=== PATIENT | female | born 1940 | race Caucasian/White ===

== ENCOUNTER 2017-04-24 09:45 | Emergency (ER) | payer OTHER ==
[~2017-04-24] VITALS: Ht 160 cm; Wt 56.5 kg
[2017-04-24] MEDS ORDERED: METF500T4 PO (10:12)
[2017-04-24] MEDS ORDERED: TRAM50TA2 PO (10:12)
[2017-04-24] MEDS ORDERED: PRAM0.5T PO (10:12)
[2017-04-24] MEDS ORDERED: [UNRECOGNIZED DRUG - CODE] INLINE (10:12)
[2017-04-24] MEDS ORDERED: GABA300C10 PO (10:12)
[2017-04-24] MEDS ORDERED: ALBUTEROL/IPRATROPIUM 2.5MG/0.5MG, 3 ML ONE (10:38)
[2017-04-24] MEDS ORDERED: SODIUM CHLORIDE FLUSH 10ML SYR IVF ONE (11:00)
[2017-04-24] MEDS ORDERED: methylPREDNISolone SOD SUCC 125 MG/2 ML IVP ONE (11:00)
[2017-04-24] MEDS ORDERED: ALBUTEROL/IPRATROPIUM 2.5MG/0.5MG, 3 ML NPPB ONE (11:00)
[2017-04-24 11:15] LABS: BASOPHILS % (AUTO) 0 % (0-1); EOSINOPHILS # (AUTO) 0.17 x10^3/uL (0-0.4); EOSINOPHILS % (AUTO) 3 % (1-7); LYMPHOCYTES # (AUTO) 1.18 x10^3/uL (1-3.4); LYMPHOCYTES % (AUTO) 18 % (22-44); MD NO; MEAN CORPUSCULAR HEMOGLOBIN 29.2 pg (27.0-34.8); MEAN CORPUSCULAR HGB CONC 33.1 g/dL (32.4-35.8); MEAN CORPUSCULAR VOLUME 88.2 fL (80-100); MEAN PLATELET VOLUME 6.9 fL (7.4-10.4); MONOCYTES # (AUTO) 0.48 x10^3/uL (0.2-0.8); MONOCYTES % (AUTO) 7 % (2-9); NEUTROPHILS # (AUTO) 4.69 x10^3/uL (1.8-6.8); NEUTROPHILS % (AUTO) 72 % (42-75); PLATELET COUNT 115 x10^3/uL (130-400); RED BLOOD COUNT 4.92 x10^6/uL (3.82-5.3); RED CELL DISTRIBUTION WIDTH 13.6 % (9.6-15.2)
[2017-04-24 11:27] LABS: ALANINE AMINOTRANSFERASE 17 U/L (12-78); ALBUMIN 3.6 g/dL (3.4-5.0); ANION GAP 8 mmol/L (5-15); CALCIUM 9.2 mg/dL (8.5-10.1); CHLORIDE 100 mmol/L (98-107); CREATININE 0.79 mg/dL (0.55-1.02)
[2017-04-24 11:32] LABS: CULTURE INDICATED? YES; MICROSCOPIC INDICATED
[2017-04-24 11:32] LABS: ALKALINE PHOSPHATASE 72 U/L (45-117); BILIRUBIN,TOTAL 1.1 mg/dL (0.2-1.0); TOTAL PROTEIN 7.9 g/dL (6.4-8.2); TROPONIN I < 0.015 ng/mL (0.000-0.045)
[2017-04-24] MEDS ORDERED: methylPREDNISolone SOD SUCC 125 MG/2 ML ONE (11:49)
[2017-04-24 11:57] VITALS: BP 126/61
[2017-04-24] MEDS ORDERED: ACETAMINOPHEN 325 MG TABLET ONE (12:16)
[2017-04-24] MEDS ORDERED: ACETAMINOPHEN 325 MG TABLET PO ONE (13:00)
== END 2017-04-24 12:25 | disposition home or self-care (01) ==
LOC: ED 10:49
DX: J44.1 Chronic obstructive pulmonary disease with (acute) exacerbation (principal)
CPT/HCPCS: 36415; 71045; 80053; 81001; 83880; 84484; 85025; 87086; 93005; 94640; 96374; 99285; J2930; J7620

== ENCOUNTER 2017-09-27 09:27 | Inpatient (IN) | payer OTHER ==
[~2017-09-27] VITALS: Ht 154.9 cm; Wt 66.4 kg
[~2017-09-27 09:27] MED LIST: GABA300C10 PO; METF500T5 PO; PRAM0.5T PO; TRAM50TA2 PO; [UNRECOGNIZED DRUG - CODE] INLINE
[2017-09-27] MEDS ORDERED: SODIUM CHLORIDE 0.9% 1,000 ML IV ONE (09:42)
[2017-09-27] MEDS ORDERED: SODIUM CHLORIDE FLUSH 10ML SYR IVF ONE (10:00)
[2017-09-27] MEDS ORDERED: DIPH,PERTUSS(ACELL),TET VAC/PF 0.5 ML IM-VACC ONE ×2 (10:08→10:30)
[2017-09-27 10:10] LABS: INTERNATIONAL NORMALIZED RATIO 1.05 (0.93-1.1); PROTHROMBIN TIME 10.8 Seconds (9.6-11.5)
[2017-09-27 10:12] LABS: ALANINE AMINOTRANSFERASE 26 U/L (12-78); ALBUMIN 3.3 g/dL (3.4-5.0); ANION GAP 4 mmol/L (5-15); CALCIUM 8.9 mg/dL (8.5-10.1); CHLORIDE 104 mmol/L (98-107); CREATININE 0.85 mg/dL (0.55-1.02)
[2017-09-27 10:14] LABS: ALKALINE PHOSPHATASE 73 U/L (45-117); BILIRUBIN,TOTAL 0.5 mg/dL (0.2-1.0)
[2017-09-27 10:38] LABS: BASOPHILS # (AUTO) 0.01 x10^3/uL (0-0.1); BASOPHILS % (AUTO) 0 % (0-1); EOSINOPHILS % (AUTO) 4 % (1-7); LYMPHOCYTES # (AUTO) 1.17 x10^3/uL (1-3.4); LYMPHOCYTES % (AUTO) 22 % (22-44); MD NO; MEAN CORPUSCULAR HGB CONC 33.7 g/dL (32.4-35.8); MEAN CORPUSCULAR VOLUME 86.2 fL (80-100); MEAN PLATELET VOLUME 7.9 fL (7.4-10.4); MONOCYTES % (AUTO) 6 % (2-9); NEUTROPHILS # (AUTO) 3.53 x10^3/uL (1.8-6.8); NEUTROPHILS % (AUTO) 68 % (42-75); PLATELET COUNT 108 x10^3/uL (130-400); RED BLOOD COUNT 4.89 x10^6/uL (3.82-5.3); RED CELL DISTRIBUTION WIDTH 14.9 % (9.6-15.2)
[2017-09-27] MEDS ORDERED: BACITRACIN ZINC OINT 500U/GM, 0.9 GM ONE (11:50)
[2017-09-27 12:28] VITALS: BP 161/74
[2017-09-27] MEDS ORDERED: DEXTROSE 4 GM TAB.CHEW PO PRN (13:30)
[2017-09-27] MEDS ORDERED: ENALAPRILAT 1.25 MG/ML, 2ML IVPush PRN (13:30)
[2017-09-27] MEDS ORDERED: ONDANSETRON 2MG/ML, 2ML IVPush PRN (13:30)
[2017-09-27] MEDS ORDERED: hydrALAzine 20 MG/ML, 1ML IVPush PRN (13:30)
[2017-09-27] MEDS ORDERED: HYDROcodone/APAP 5/325 TABLET PO PRN (13:30)
[2017-09-27] MEDS ORDERED: morphine SULFATE 10 MG/ML, 1ML IVPush PRN (13:30)
[2017-09-27] MEDS ORDERED: BISACODYL 10 MG SUPP PR PRN (13:30)
[2017-09-27] MEDS ORDERED: POLYETHYLENE GLYCOL 17 GM PACKET PO PRN (13:30)
[2017-09-27] MEDS ORDERED: GLUCAGON 1 MG IM PRN (13:30)
[2017-09-27] MEDS ORDERED: ONDANSETRON ODT 4 MG PO PRN (13:30)
[2017-09-27] MEDS ORDERED: DEXTROSE 50%, 50ML SYRINGE IVPush PRN (13:30)
[2017-09-27] MEDS: LACTATED RINGERS 1,000 ML IV SCH ×2 (13:50→20:30)
[2017-09-27] MEDS: NICOTINE 21 MG/24 HR PATCH.TD24 TD SCH (15:40)
[2017-09-27] MEDS ORDERED: FURO-93 PO (17:05)
[2017-09-27] MEDS: INSULIN LISPRO 100 UNITS/ML, PEN SQ-INSULIN SCH ×2 (17:27→20:36)
[2017-09-27] MEDS ORDERED: FENTANYL PF 100 MCG/2ML ONE ×2 (17:46→21:54)
[2017-09-27] MEDS ORDERED: PROPOFOL 10 MG/ML, 20ML ONE (17:48)
[2017-09-27 18:55] VITALS: BP 137/76
[2017-09-27] MEDS ORDERED: WATER-INJECTION,STERILE 10 ML IV ONE (19:02)
[2017-09-27] MEDS ORDERED: CEFAZOLIN 1,000 MG ONE ×2 (19:02)
[2017-09-27] MEDS: SODIUM CHLORIDE FLUSH 10ML SYR IVF SCH (20:29)
[2017-09-27] MEDS: DOCUSATE 100 MG CAPSULE PO SCH (20:29)
[2017-09-27] MEDS ORDERED: ONDANSETRON 2MG/ML, 2ML ONE (20:43)
[2017-09-27] MEDS ORDERED: PROMETHAZINE 12.5 MG SUPP PR PRN (21:00)
[2017-09-27] MEDS ORDERED: EPHEDRINE 50 MG/ML, 1ML IM PRN (21:00)
[2017-09-27] MEDS ORDERED: MORPHINE SULFATE 4 MG/ML, 1ML IVPush PRN (21:00)
[2017-09-27] MEDS ORDERED: PROMETHAZINE 25 MG SUPP PR PRN (21:00)
[2017-09-27] MEDS ORDERED: OXYcodone 5 MG/5 ML ORAL.SOL UDC PO PRN (21:00)
[2017-09-27] MEDS ORDERED: ONDANSETRON ODT 8 MG PO PRN (21:00)
[2017-09-27] MEDS ORDERED: MIDAZOLAM 1 MG/ML, 2ML IV PRN (21:00)
[2017-09-27] MEDS ORDERED: FENTANYL PF 100 MCG/2ML IV PRN (21:00)
[2017-09-27] MEDS ORDERED: ALBUTEROL/IPRATROPIUM 2.5MG/0.5MG, 3 ML NPPB PRN (21:00)
[2017-09-27] MEDS ORDERED: OXYcodone 5 MG/5 ML ORAL.SOL UDC ONE (21:54)
[2017-09-27] MEDS ORDERED: OXYcodone/APAP 5/325MG TABLET PO PRN (23:00)
[2017-09-27] MEDS ORDERED: ONDANSETRON 2MG/ML, 2ML IV PRN (23:00)
[2017-09-27] MEDS ORDERED: HYDROcodone/APAP 7.5-325MG/15ML UDC PO PRN (23:00)
[2017-09-27] MEDS ORDERED: HYDROmorphone 2 MG/ML, 1ML IVPush PRN (23:00)
[2017-09-27] MEDS: KETOROLAC 30 MG/1 ML IV SCH (23:13)
[2017-09-27] MEDS: CEFAZOLIN PMX 1GM/50ML 50 ML IVPB SCH (23:13)
[2017-09-28 00:38] VITALS: BP 89/44
[2017-09-28] MEDS ORDERED: POTA10TA5 PO (01:24)
[2017-09-28] MEDS ORDERED: VITA100T PO (01:24)
[2017-09-28] MEDS ORDERED: CRAN500T2 PO (01:24)
[2017-09-28] MEDS ORDERED: UMEC1DIS INH (01:26)
[2017-09-28] MEDS ORDERED: CHOL10003 PO (01:26)
[2017-09-28] MEDS: LACTATED RINGERS 1,000 ML IV SCH ×3 (03:46→21:23)
[2017-09-28 04:48] VITALS: BP 102/48
[2017-09-28 05:37] LABS: BASOPHILS # (AUTO) 0.02 x10^3/uL (0-0.1); BASOPHILS % (AUTO) 0 % (0-1); EOSINOPHILS # (AUTO) 0.23 x10^3/uL (0-0.4); EOSINOPHILS % (AUTO) 3 % (1-7); LYMPHOCYTES # (AUTO) 1.31 x10^3/uL (1-3.4); LYMPHOCYTES % (AUTO) 18 % (22-44); MD NO; MEAN CORPUSCULAR HEMOGLOBIN 28.5 pg (27.0-34.8); MEAN CORPUSCULAR HGB CONC 33.5 g/dL (32.4-35.8); MEAN CORPUSCULAR VOLUME 84.9 fL (80-100); MEAN PLATELET VOLUME 7.7 fL (7.4-10.4); MONOCYTES # (AUTO) 0.51 x10^3/uL (0.2-0.8); MONOCYTES % (AUTO) 7 % (2-9); NEUTROPHILS # (AUTO) 5.19 x10^3/uL (1.8-6.8); NEUTROPHILS % (AUTO) 72 % (42-75); PLATELET COUNT 110 x10^3/uL (130-400); RED BLOOD COUNT 3.29 x10^6/uL (3.82-5.3)
[2017-09-28 05:38] LABS: ANION GAP 3 mmol/L (5-15); CHLORIDE 103 mmol/L (98-107)
[2017-09-28 05:40] LABS: CREATININE 0.94 mg/dL (0.55-1.02)
[2017-09-28] MEDS: ENOXAPARIN 40 MG/0.4 ML SQ SCH (06:20)
[2017-09-28] MEDS: CEFAZOLIN PMX 1GM/50ML 50 ML IVPB SCH (06:20)
[2017-09-28] MEDS: KETOROLAC 30 MG/1 ML IV SCH ×2 (06:20→17:18)
[2017-09-28] MEDS: DOCUSATE 100 MG CAPSULE PO SCH ×2 (07:47→22:00)
[2017-09-28] MEDS: INSULIN LISPRO 100 UNITS/ML, PEN SQ-INSULIN SCH ×4 (07:48→23:03)
[2017-09-28] MEDS: SODIUM CHLORIDE FLUSH 10ML SYR IVF SCH ×4 (07:48→21:00)
[2017-09-28 08:07] VITALS: BP 143/83
[2017-09-28 13:35] VITALS: BP 120/69
[2017-09-28] MEDS: NICOTINE 21 MG/24 HR PATCH.TD24 TD SCH (17:18)
[2017-09-28] MEDS: GABAPENTIN 300 MG CAPSULE PO SCH ×2 (17:18→22:00)
[2017-09-28 19:39] VITALS: BP 86/50
[2017-09-28 21:25] VITALS: BP 99/37
[2017-09-28] MEDS: metFORMIN 500 MG TABLET PO SCH (22:00)
[2017-09-28] MEDS: PRAMIPEXOLE 0.5MG TABLET PO SCH (22:00)
[2017-09-29 01:00] VITALS: BP 106/73
[2017-09-29] MEDS: LACTATED RINGERS 1,000 ML IV SCH ×2 (05:10→14:43)
[2017-09-29 05:32] LABS: ANION GAP 4 mmol/L (5-15); CHLORIDE 106 mmol/L (98-107); CREATININE 0.88 mg/dL (0.55-1.02)
[2017-09-29 06:08] LABS: BASOPHILS % (AUTO) 0 % (0-1); EOSINOPHILS # (AUTO) 0.14 x10^3/uL (0-0.4); EOSINOPHILS % (AUTO) 3 % (1-7); LYMPHOCYTES # (AUTO) 1.03 x10^3/uL (1-3.4); LYMPHOCYTES % (AUTO) 22 % (22-44); MD SCAN; MEAN CORPUSCULAR HEMOGLOBIN 28.5 pg (27.0-34.8); MEAN CORPUSCULAR HGB CONC 33.3 g/dL (32.4-35.8); MEAN CORPUSCULAR VOLUME 85.8 fL (80-100); MEAN PLATELET VOLUME 7.6 fL (7.4-10.4); MONOCYTES # (AUTO) 0.33 x10^3/uL (0.2-0.8); MONOCYTES % (AUTO) 7 % (2-9); NEUTROPHILS # (AUTO) 3.19 x10^3/uL (1.8-6.8); NEUTROPHILS % (AUTO) 68 % (42-75); PLATELET COUNT 79 x10^3/uL (130-400); RED CELL DISTRIBUTION WIDTH 14.7 % (9.6-15.2)
[2017-09-29] MEDS: INSULIN LISPRO 100 UNITS/ML, PEN SQ-INSULIN SCH ×4 (07:29→20:50)
[2017-09-29 08:12] VITALS: BP 80/30
[2017-09-29] MEDS ORDERED: FUROSEMIDE 20 MG TABLET PO SCH (09:00)
[2017-09-29] MEDS: MULTIVITS,STRESS FORMULA 1 TABLET PO SCH (09:23)
[2017-09-29] MEDS: metFORMIN 500 MG TABLET PO SCH ×2 (09:23→20:42)
[2017-09-29] MEDS: GABAPENTIN 300 MG CAPSULE PO SCH ×3 (09:23→20:42)
[2017-09-29] MEDS: DOCUSATE 100 MG CAPSULE PO SCH ×2 (09:23→20:42)
[2017-09-29] MEDS: ENOXAPARIN 40 MG/0.4 ML SQ SCH (09:26)
[2017-09-29] MEDS: SODIUM CHLORIDE FLUSH 10ML SYR IVF SCH ×4 (09:26→20:43)
[2017-09-29] MEDS: CHOLECALCIFEROL 1,000 UNIT TABLET PO SCH (09:26)
[2017-09-29] MEDS ORDERED: SODIUM CHLORIDE 0.9%, 500ML IVBOLUS ONE (09:30)
[2017-09-29] MEDS: TEMPLATE NON-FORMULARY MED. (Umeclidinium Brm/Vilanterol Tr (Anoro Ellipta 62.5-25 Mcg Inh INH SCH (09:32)
[2017-09-29 11:30] VITALS: BP 89/42
[2017-09-29 13:40] VITALS: BP 94/39
[2017-09-29] MEDS: NICOTINE 21 MG/24 HR PATCH.TD24 TD SCH (16:46)
[2017-09-29 17:31] LABS: OCCULT BLOOD NEGATIVE (NEGATIVE)
[2017-09-29 19:53] VITALS: BP 148/73
[2017-09-29] MEDS: ACETAMINOPHEN 325 MG TABLET PO PRN (20:42)
[2017-09-29] MEDS: PRAMIPEXOLE 0.5MG TABLET PO SCH (20:42)
[2017-09-30] VITALS (7 sets, daily range): BP systolic 91–149; BP diastolic 49–69
[2017-09-30] MEDS: LACTATED RINGERS 1,000 ML IV SCH ×3 (00:32→22:12)
[2017-09-30] MEDS: ACETAMINOPHEN 325 MG TABLET PO PRN ×4 (02:51→20:37)
[2017-09-30] MEDS: INSULIN LISPRO 100 UNITS/ML, PEN SQ-INSULIN SCH ×4 (06:19→20:42)
[2017-09-30 08:37] LABS: ANION GAP 4 mmol/L (5-15); CALCIUM 7.3 mg/dL (8.5-10.1); CHLORIDE 107 mmol/L (98-107)
[2017-09-30] MEDS: CHOLECALCIFEROL 1,000 UNIT TABLET PO SCH (08:38)
[2017-09-30] MEDS: MULTIVITS,STRESS FORMULA 1 TABLET PO SCH (08:38)
[2017-09-30] MEDS: metFORMIN 500 MG TABLET PO SCH ×2 (08:38→20:37)
[2017-09-30] MEDS: SODIUM CHLORIDE FLUSH 10ML SYR IVF SCH ×4 (08:39→20:37)
[2017-09-30] MEDS: GABAPENTIN 300 MG CAPSULE PO SCH ×3 (08:39→20:36)
[2017-09-30] MEDS: DOCUSATE 100 MG CAPSULE PO SCH ×2 (08:39→20:36)
[2017-09-30] MEDS: ENOXAPARIN 40 MG/0.4 ML SQ SCH (08:40)
[2017-09-30] MEDS: TEMPLATE NON-FORMULARY MED. (Umeclidinium Brm/Vilanterol Tr (Anoro Ellipta 62.5-25 Mcg Inh INH SCH (08:40)
[2017-09-30 10:23] LABS: MEAN CORPUSCULAR HEMOGLOBIN 29.8 pg (27.0-34.8); MEAN CORPUSCULAR VOLUME 85.1 fL (80-100); MEAN PLATELET VOLUME 7.5 fL (7.4-10.4); PLATELET COUNT 83 x10^3/uL (130-400); RED BLOOD COUNT 2.13 x10^6/uL (3.82-5.3); RED CELL DISTRIBUTION WIDTH 15.5 % (9.6-15.2)
[2017-09-30 10:28] LABS: BASOPHILS # (AUTO) 0.01 x10^3/uL (0-0.1); BASOPHILS % (AUTO) 0 % (0-1); EOSINOPHILS # (AUTO) 0.15 x10^3/uL (0-0.4); EOSINOPHILS % (AUTO) 4 % (1-7); LYMPHOCYTES # (AUTO) 0.83 x10^3/uL (1-3.4); LYMPHOCYTES % (AUTO) 20 % (22-44); MD SCAN; MONOCYTES # (AUTO) 0.31 x10^3/uL (0.2-0.8); MONOCYTES % (AUTO) 8 % (2-9); NEUTROPHILS # (AUTO) 2.82 x10^3/uL (1.8-6.8); NEUTROPHILS % (AUTO) 69 % (42-75)
[2017-09-30 13:59] LABS: MICROSCOPIC NOT IND
[2017-09-30] MEDS: NICOTINE 21 MG/24 HR PATCH.TD24 TD SCH (16:51)
[2017-09-30] MEDS: PRAMIPEXOLE 0.5MG TABLET PO SCH (20:37)
[2017-10-01 01:26] VITALS: BP 111/65
[2017-10-01 05:21] LABS: BASOPHILS # (AUTO) 0.01 x10^3/uL (0-0.1); BASOPHILS % (AUTO) 0 % (0-1); EOSINOPHILS # (AUTO) 0.21 x10^3/uL (0-0.4); EOSINOPHILS % (AUTO) 4 % (1-7); LYMPHOCYTES # (AUTO) 1.01 x10^3/uL (1-3.4); LYMPHOCYTES % (AUTO) 21 % (22-44); MD NO; MEAN CORPUSCULAR HEMOGLOBIN 29.4 pg (27.0-34.8); MEAN CORPUSCULAR HGB CONC 33.9 g/dL (32.4-35.8); MEAN CORPUSCULAR VOLUME 86.6 fL (80-100); MEAN PLATELET VOLUME 8.1 fL (7.4-10.4); MONOCYTES % (AUTO) 8 % (2-9); NEUTROPHILS # (AUTO) 3.24 x10^3/uL (1.8-6.8); NEUTROPHILS % (AUTO) 67 % (42-75); PLATELET COUNT 101 x10^3/uL (130-400); RED BLOOD COUNT 2.58 x10^6/uL (3.82-5.3); RED CELL DISTRIBUTION WIDTH 15.5 % (9.6-15.2)
[2017-10-01 05:31] LABS: ALBUMIN 2.2 g/dL (3.4-5.0); ANION GAP 4 mmol/L (5-15); CALCIUM 7.7 mg/dL (8.5-10.1); CHLORIDE 106 mmol/L (98-107)
[2017-10-01 05:36] LABS: ALANINE AMINOTRANSFERASE 28 U/L (12-78); ALKALINE PHOSPHATASE 60 U/L (45-117); BILIRUBIN,TOTAL 1.6 mg/dL (0.2-1.0); CREATININE 0.67 mg/dL (0.55-1.02); TOTAL PROTEIN 5.4 g/dL (6.4-8.2)
[2017-10-01] MEDS: INSULIN LISPRO 100 UNITS/ML, PEN SQ-INSULIN SCH ×4 (06:28→19:50)
[2017-10-01] MEDS: LACTATED RINGERS 1,000 ML IV SCH (06:33)
[2017-10-01] MEDS: SODIUM CHLORIDE FLUSH 10ML SYR IVF SCH ×4 (07:48→19:49)
[2017-10-01] MEDS: ENOXAPARIN 40 MG/0.4 ML SQ SCH (07:48)
[2017-10-01] MEDS: GABAPENTIN 300 MG CAPSULE PO SCH ×3 (07:48→19:49)
[2017-10-01] MEDS: metFORMIN 500 MG TABLET PO SCH ×2 (07:48→19:49)
[2017-10-01] MEDS: TEMPLATE NON-FORMULARY MED. (Umeclidinium Brm/Vilanterol Tr (Anoro Ellipta 62.5-25 Mcg Inh INH SCH (07:48)
[2017-10-01] MEDS: MULTIVITS,STRESS FORMULA 1 TABLET PO SCH (07:48)
[2017-10-01] MEDS: CHOLECALCIFEROL 1,000 UNIT TABLET PO SCH (07:48)
[2017-10-01] MEDS: DOCUSATE 100 MG CAPSULE PO SCH ×2 (07:49→19:32)
[2017-10-01 08:07] VITALS: BP 162/78
[2017-10-01 09:09] LABS: THYROID STIMULATING HORMONE 0.917 mIU/L (0.358-3.740)
[2017-10-01 10:10] VITALS: BP 134/78
[2017-10-01] MEDS: ACETAMINOPHEN 325 MG TABLET PO PRN (10:27)
[2017-10-01 13:35] VITALS: BP 125/85
[2017-10-01] MEDS: NICOTINE 21 MG/24 HR PATCH.TD24 TD SCH (16:02)
[2017-10-01 19:29] VITALS: BP 123/67
[2017-10-01] MEDS: PRAMIPEXOLE 0.5MG TABLET PO SCH (19:49)
[2017-10-02 02:40] VITALS: BP 127/69
[2017-10-02 06:24] LABS: BASOPHILS # (AUTO) 0.01 x10^3/uL (0-0.1); BASOPHILS % (AUTO) 0 % (0-1); EOSINOPHILS # (AUTO) 0.15 x10^3/uL (0-0.4); EOSINOPHILS % (AUTO) 3 % (1-7); LYMPHOCYTES # (AUTO) 0.57 x10^3/uL (1-3.4); LYMPHOCYTES % (AUTO) 13 % (22-44); MD NO; MEAN CORPUSCULAR HEMOGLOBIN 29.1 pg (27.0-34.8); MEAN CORPUSCULAR HGB CONC 33.6 g/dL (32.4-35.8); MEAN CORPUSCULAR VOLUME 86.6 fL (80-100); MEAN PLATELET VOLUME 7.8 fL (7.4-10.4); MONOCYTES # (AUTO) 0.35 x10^3/uL (0.2-0.8); MONOCYTES % (AUTO) 8 % (2-9); NEUTROPHILS # (AUTO) 3.35 x10^3/uL (1.8-6.8); NEUTROPHILS % (AUTO) 76 % (42-75); PLATELET COUNT 124 x10^3/uL (130-400); RED BLOOD COUNT 2.84 x10^6/uL (3.82-5.3); RED CELL DISTRIBUTION WIDTH 15.6 % (9.6-15.2)
[2017-10-02 06:32] LABS: CHLORIDE 104 mmol/L (98-107)
[2017-10-02 06:42] LABS: ANION GAP 6 mmol/L (5-15); CALCIUM 8.5 mg/dL (8.5-10.1); CREATININE 0.56 mg/dL (0.55-1.02)
[2017-10-02] MEDS: INSULIN LISPRO 100 UNITS/ML, PEN SQ-INSULIN SCH ×3 (07:00→16:00)
[2017-10-02 07:30] VITALS: BP 111/61
[2017-10-02 07:49] VITALS: BP 130/64
[2017-10-02] MEDS: TEMPLATE NON-FORMULARY MED. (Umeclidinium Brm/Vilanterol Tr (Anoro Ellipta 62.5-25 Mcg Inh INH SCH (08:10)
[2017-10-02] MEDS: ENOXAPARIN 40 MG/0.4 ML SQ SCH (08:11)
[2017-10-02] MEDS: CHOLECALCIFEROL 1,000 UNIT TABLET PO SCH (08:11)
[2017-10-02] MEDS: GABAPENTIN 300 MG CAPSULE PO SCH ×2 (08:11→16:19)
[2017-10-02] MEDS: MULTIVITS,STRESS FORMULA 1 TABLET PO SCH (08:11)
[2017-10-02] MEDS: metFORMIN 500 MG TABLET PO SCH (08:11)
[2017-10-02] MEDS: SODIUM CHLORIDE FLUSH 10ML SYR IVF SCH ×2 (08:12)
[2017-10-02] MEDS: DOCUSATE 100 MG CAPSULE PO SCH (08:23)
[2017-10-02] MEDS ORDERED: ACET325T14 PO (12:56)
[2017-10-02] MEDS ORDERED: TRAM50TA2 PO (12:56)
[2017-10-02] MEDS ORDERED: ENOX40SY4 SQ (12:56)
[2017-10-02] MEDS ORDERED: BISA10SU65 PR (12:56)
[2017-10-02] MEDS ORDERED: OXYC1TAB7 PO (12:56)
[2017-10-02] MEDS ORDERED: DOCU-131 PO (12:56)
[2017-10-02 13:50] VITALS: BP 106/64
[2017-10-02] MEDS: NICOTINE 21 MG/24 HR PATCH.TD24 TD SCH (16:19)
== END 2017-10-02 17:30 | DRG 481 ==
LOC: ED 11:04 → EDIP 11:22 → 4NOR 12:17
PROVIDERS: ADMIT Internal Medicine; ATTEND Internal Medicine
PROC: 0QS636Z Reposition Right Upper Femur with Intramedullary Internal Fixation Device, Percutaneous Approach (ICD-10-PCS; principal; 2017-09-27 20:00)
PROC: 30233N1 Transfusion of Nonautologous Red Blood Cells into Peripheral Vein, Percutaneous Approach (ICD-10-PCS; 2017-09-30)
DX: S72.141A Displaced intertrochanteric fracture of right femur, initial encounter for closed fracture (principal); J96.10 Chronic respiratory failure, unspecified whether with hypoxia or hypercapnia; E44.1 Mild protein-calorie malnutrition; D64.9 Anemia, unspecified; I95.9 Hypotension, unspecified; D69.6 Thrombocytopenia, unspecified; F03.90 Unspecified dementia, unspecified severity, without behavioral disturbance, psychotic disturbance, mood disturbance, and anxiety; F17.210 Nicotine dependence, cigarettes, uncomplicated; G25.81 Restless legs syndrome; E11.40 Type 2 diabetes mellitus with diabetic neuropathy, unspecified; G89.4 Chronic pain syndrome; J44.9 Chronic obstructive pulmonary disease, unspecified; M19.90 Unspecified osteoarthritis, unspecified site; M50.321 Other cervical disc degeneration at C4-C5 level; S01.01XA Laceration without foreign body of scalp, initial encounter; W01.0XXA Fall on same level from slipping, tripping and stumbling without subsequent striking against object, initial encounter; Z99.81 Dependence on supplemental oxygen; Y93.89 Activity, other specified; Y92.038 Other place in apartment as the place of occurrence of the external cause; Y99.8 Other external cause status; Z79.84 Long term (current) use of oral hypoglycemic drugs; Z79.899 Other long term (current) drug therapy; Z68.27 Body mass index [BMI] 27.0-27.9, adult; Z88.0 Allergy status to penicillin; Z91.013 Allergy to seafood
CPT/HCPCS: 36415; 70450; 71045; 72125; 76000; 80048; 80053; 81003; 82272; 82607; 82728; 82962; 83540; 83550; 83615; 84443; 84466; 85014; 85018; 85025; 85610; 85730; 86850; 86900; 86923; 90715; 93005; 99285; C1713; J0690; J1650; J1885; J2405; J2704; J3010; J1815; J2270; J7030; J7040; J7120; P9016

== ENCOUNTER 2018-01-06 11:57 | Emergency (ER) | payer OTHER ==
[~2018-01-06] VITALS: Ht 160 cm; Wt 50.6 kg
[~2018-01-06 11:57] MED LIST changes: +ACET325T14 PO; +BISA10SU65 PR; +CHOL10003 PO; +CRAN500T2 PO; +DOCU-131 PO; +ENOX40SY4 SQ; +FURO-93 PO; +METF500T17 PO; -METF500T5 PO; +OXYC1TAB7 PO; +POTA10TA5 PO; +UMEC1DIS INH; +VITA100T PO
[2018-01-06 13:34] VITALS: BP 131/54
== END 2018-01-06 16:55 | disposition home or self-care (01) ==
LOC: ED 16:50
DX: K59.00 Constipation, unspecified (principal); J44.9 Chronic obstructive pulmonary disease, unspecified; F17.200 Nicotine dependence, unspecified, uncomplicated
CPT/HCPCS: 74021; 99283

== ENCOUNTER 2018-01-15 16:39 | Emergency (ER) | payer OTHER ==
[~2018-01-15] VITALS: Ht 157.5 cm; Wt 50.8 kg
[2018-01-15 16:41] VITALS: BP 171/65
== END 2018-01-15 18:34 | disposition home or self-care (01) ==
LOC: ED 18:20
DX: S52.251A Displaced comminuted fracture of shaft of ulna, right arm, initial encounter for closed fracture (principal); J44.9 Chronic obstructive pulmonary disease, unspecified; F17.200 Nicotine dependence, unspecified, uncomplicated; X50.1XXA Overexertion from prolonged static or awkward postures, initial encounter; Y93.89 Activity, other specified; Y92.89 Other specified places as the place of occurrence of the external cause; Y99.8 Other external cause status
CPT/HCPCS: 29125; 99283

== ENCOUNTER 2018-01-24 13:14 | Emergency (ER) | payer OTHER ==
[~2018-01-24] VITALS: Ht 157.5 cm; Wt 50.0 kg
[2018-01-24 13:21] VITALS: BP 111/56
[2018-01-24] MEDS ORDERED: PINK LADY ENEMA 490 ML BOTTLE PR ONE (14:00)
[2018-01-24 14:06] LABS: BASOPHILS # (AUTO) 0.01 x10^3/uL (0-0.1); BASOPHILS % (AUTO) 0 % (0-1); EOSINOPHILS # (AUTO) 0.22 x10^3/uL (0-0.4); EOSINOPHILS % (AUTO) 4 % (1-7); LYMPHOCYTES # (AUTO) 0.84 x10^3/uL (1-3.4); LYMPHOCYTES % (AUTO) 15 % (22-44); MD NO; MEAN CORPUSCULAR HGB CONC 33.1 g/dL (32.4-35.8); MEAN CORPUSCULAR VOLUME 84.7 fL (80-100); MEAN PLATELET VOLUME 7.8 fL (7.4-10.4); MONOCYTES # (AUTO) 0.27 x10^3/uL (0.2-0.8); MONOCYTES % (AUTO) 5 % (2-9); NEUTROPHILS # (AUTO) 4.24 x10^3/uL (1.8-6.8); NEUTROPHILS % (AUTO) 76 % (42-75); PLATELET COUNT 143 x10^3/uL (130-400); RED BLOOD COUNT 4.85 x10^6/uL (3.82-5.3); RED CELL DISTRIBUTION WIDTH 14.6 % (9.6-15.2)
[2018-01-24 14:14] LABS: CHLORIDE 106 mmol/L (98-107)
[2018-01-24 14:26] LABS: ANION GAP 5 mmol/L (5-15); CALCIUM 9.1 mg/dL (8.5-10.1); CREATININE 0.74 mg/dL (0.55-1.02)
[2018-01-24] MEDS ORDERED: PROPOFOL 10 MG/ML, 20ML IVPush ONE (17:00)
== END 2018-01-24 18:09 | disposition home or self-care (01) ==
LOC: ED 17:15
DX: K56.41 Fecal impaction (principal); J44.9 Chronic obstructive pulmonary disease, unspecified; F03.90 Unspecified dementia, unspecified severity, without behavioral disturbance, psychotic disturbance, mood disturbance, and anxiety
CPT/HCPCS: 36415; 80048; 85025; 99283

== ENCOUNTER → 2018-08-12 | Outpatient (CLI) | payer MEDICARE ==
[~2018-08-12] MED LIST changes: +REGADENOSON 0.4 MG/5 ML SYRINGE ONE
== END | disposition home or self-care (01) ==
LOC: CFH 08:31
PROVIDERS: ATTEND Internal Medicine Cardiovascular Disease
DX: I08.8 Other rheumatic multiple valve diseases (principal); R60.9 Edema, unspecified; E11.9 Type 2 diabetes mellitus without complications; E78.5 Hyperlipidemia, unspecified; F17.200 Nicotine dependence, unspecified, uncomplicated
CPT/HCPCS: 78452; 93017; 93306; A9502; J2785

== ENCOUNTER 2018-09-15 09:54 | Emergency (ER) | payer MEDICARE ==
[~2018-09-15] VITALS: Ht 160 cm; Wt 59.1 kg
[2018-09-15 11:53] VITALS: BP 126/47
== END 2018-09-15 13:16 | disposition home or self-care (01) ==
LOC: ED 12:49
DX: J30.2 Other seasonal allergic rhinitis (principal); J44.9 Chronic obstructive pulmonary disease, unspecified
CPT/HCPCS: 36415; 71046; 80048; 82040; 83605; 83880; 84484; 85025; 87040; 93005; 94640; 99284; J7620